=== PATIENT | male | born 2000 | race Caucasian/White ===

== ENCOUNTER 2020-10-21 13:05 | Emergency (ER) | payer BC ==
[2020-10-21 13:13] VITALS: BP 112/68; PULSE 84; RESP 18; TEMP 98.6
--- NOTE | 2020-10-21 13:58 | ED ---
ENT HPI - General Chief complaint: ENT Stated complaint: Swollen Tonsils Time Seen by Provider: 10/21/20 13:21 Source: patient, RN notes reviewed Mode of arrival: ambulatory Limitations: no limitations - History of Present Illness Initial comments: 20-year-old male present emergency department with chief complaint of sore throat, large tonsils. Patient states he had issues with this during the summer, patient has sore throat currently. Patient states he felt like never got better but states that last week he get worse. She is he's been increasing swelling, redness. Patient has had subjective fevers. No abdominal pain no history of mono - Related Data Previous Rx's Medication Instructions Recorded Amoxicillin/Potassium Clav 1 tab PO Q12HR #20 tab 10/21/20 [Augmentin 875-125 Tablet] predniSONE 50 mg PO DAILY #5 tab 10/21/20 Allergies Allergy/AdvReac Type Severity Reaction Status Date / Time No Known Allergies Allergy Verified 10/21/20 13:14 Review of Systems ROS Statement: Those systems with pertinent positive or pertinent negative responses have been documented in the HPI. ROS Other: All systems not noted in ROS Statement are negative. Past Medical History Past Medical History: No Reported History History of Any Multi-Drug Resistant Organisms: None Reported Past Surgical History: Orthopedic Surgery Past Psychological History: No Psychological Hx Reported Smoking Status: Never smoker Past Alcohol Use History: None Reported Past Drug Use History: None Reported General Exam Limitations: no limitations General appearance: alert, in no apparent distress Head exam: Present: atraumatic, normocephalic, normal inspection Eye exam: Present: normal appearance, PERRL, EOMI. Absent: scleral icterus, conjunctival injection, periorbital swelling ENT exam: Present: mucous membranes moist, TM's normal bilaterally. Absent: normal exam, normal oropharynx (Erythema, enlarged tonsils, no exudates no trismus no difficult swallowing secretions) Neck exam: Present: normal inspection, full ROM. Absent: tenderness, meningism us, lymphadenopathy Respiratory exam: Present: normal lung sounds bilaterally. Absent: respiratory distress, wheezes, rales, rhonchi, stridor Cardiovascular Exam: Present: regular rate, normal rhythm, normal heart sounds. Absent: systolic murmur, diastolic murmur, rubs, gallop, clicks Course Vital Signs 10/21/20 13:11 Temperature 98.6 F Pulse Rate 84 Respiratory 18 Rate Blood Pressure 112/68 O2 Sat by Pulse 98 Oximetry Medical Decision Making - Medical Decision Making 20-year-old presents for sore throat. Patient will be treated for acute tonsillitis. Patient will follow-up with ENT if no improvement. Disposition Clinical Impression: Acute tonsillitis Disposition: HOME SELF-CARE Condition: Stable Instructions (If sedation given, give patient instructions): Tonsillitis (ED) Additional Instructions: Please return to the Emergency Department if symptoms worsen or any other concerns. Prescriptions: Amoxicillin/Potassium Clav [Augmentin 875-125 Tablet] 1 tab PO Q12HR #20 tab predniSONE 50 mg PO DAILY #5 tab Is patient prescribed a controlled substance at d/c from ED?: No Referrals: None,Stated [Primary Care Provider] - 1-2 days Jose Miguel Kapoor DO [Doctor of Osteopathic Medicine] - 1-2 days Time of Disposition: 13:57
== END 2020-10-21 14:01 | disposition home or self-care (01) ==
LOC: EC 13:05
DX: J03.90 Acute tonsillitis, unspecified (principal)
CPT/HCPCS: 99282